=== PATIENT | female | born 1950 | race Two or more races ===

== ENCOUNTER 2016-08-02 11:36 | Emergency (ER) | payer BC ==
[~2016-08-02] VITALS: Ht 162.6 cm; Wt 54.4 kg
[2016-08-02] MEDS ORDERED: [UNRECOGNIZED DRUG - REMARK] (11:46)
[2016-08-02 11:49] VITALS: BP 135/70
--- NOTE | 2016-08-02 12:28 | Emergency Room Report ---
History of Present Illness General Chief Complaint: Upper Respiratory Illness Source: Patient Present Illness HPI 66 YO Female presents to the ED c/o itchy rash to the face and neck intermittently x 2 weeks, pt. denies swelling of the lips or tongue, denies wheezing or difficulty breathing. pt. does report a scratchy sensation in the throat. pt. states Lali did help minimally with her symptoms initially. denies new soaps, detergents, or facial products. denies previous allergies. pt. denies N/V/F/C,abdominal pain, dysuria, hematuria, or frequency. Pt. reports 10/10 in severity burning sensation to the face. pt. reports intermittent dull CHOUDHURY generalized x 5 days. denies acute onset of pain. Denies CP , Palpitations, LOC, AMS, dizziness, Changes in Vision, Sensation, paresthesias , or a sudden severe headache. Allergies: Coded Allergies: PENICILLINS (Unverified Allergy, Unknown, 08/02/16) Uncoded Allergies: PENICILLIN (Allergy, Unknown, 08/02/16) Patient History Past Medical History: see triage record Past Surgical History: none Pertinent Family History: none Now: No Reviewed Nursing Documentation: PMH: Agreed, PSxH: Agreed Nursing Documentation-PMH Hx Gastrointestinal Problems: Yes - Irritable bowel Review of Systems All Other Systems: negative except mentioned in HPI Physical Exam Vital Signs Date Time Temp Pulse Resp B/P Pulse Ox O2 Delivery O2 Flow Rate FiO2 08/02/16 11:39 98.4 86 16 135/70 100 Room Air Sp02 EP Interpretation: reviewed, normal General Appearance: no apparent distress, alert, GCS 15, non-toxic Head: normocephalic, atraumatic Eyes: bilateral eye PERRL, bilateral eye normal inspection ENT: hearing grossly normal, normal pharynx, no angioedema, normal voice Neck: full range of motion, supple/symm/no masses Respiratory: chest non-tender, lungs clear, normal breath sounds, speaking full sentences Cardiovascular #1: regular rate, rhythm, no edema Gastrointestinal: normal bowel sounds, non tender, soft, no guarding, no rebound Rectal: deferred Genitourinary: normal inspection, no CVA tenderness Musculoskeletal: back normal, gait/station normal, normal range of motion, non- tender Neurologic: alert, oriented x3, responsive, motor strength/tone normal, sensory intact, speech normal Psychiatric: judgement/insight normal, memory normal, mood/affect normal Skin: normal color, warm/dry, well hydrated, rash - erythemea and dryness to the face and neck with obvious excoriations, mild facial edema noted, no swelling of the lips or tongue. Lymphatic: no adenopathy Medical Decision Making PA Attestation Dr. Watson is my supervising Physician whom patient management has been discussed with. Diagnostic Impression: Primary Impression: Allergic dermatitis ER Course 66 YO Female presents to the ED c/o itchy rash to the face and neck intermittently x 2 weeks, pt. denies swelling of the lips or tongue, denies wheezing or difficulty breathing. pt. does report a scratchy sensation in the throat. pt. states Lali did help minimally with her symptoms initially. denies new soaps, detergents, or facial products. denies previous allergies. pt. denies N/V/F/C,abdominal pain, dysuria, hematuria, or frequency. Pt. reports 10/10 in severity burning sensation to the face. pt. reports intermittent dull CHOUDHURY generalized x 5 days. denies acute onset of pain. Denies CP , Palpitations, LOC, AMS, dizziness, Changes in Vision, Sensation, paresthesias , or a sudden severe headache. Ddx considered but are not limited to cellulitis, scabies, shingles, varicella, dermatitis, urticaria, eczema, tinea Vital signs: are WNL, pt. is afebrile H&PE are most consistent with Allergic dermatitis, no evidence of acute or impending airway compromise. ORDERS: -CBC: unremarkable -CMP: unremarkable -UA: WNL ED INTERVENTIONS: -Benadryl -Solu-medrol IM - Re-evaluation of pt. her facial rash has significantly improved. DISCHARGE: At this time pt. is stable for d/c to home. Will provide printed patient care instructions, and any necessary prescriptions. Care plan and follow up instructions have been discussed with the patient prior to discharge. Labs Test 08/02/16 12:10 White Blood Count 7.5 K/UL (4.8-10.8) Red Blood Count 4.50 M/UL (4.20-5.40) Hemoglobin 13.4 G/DL (12.0-16.0) Hematocrit 40.2 % (37.0-47.0) Mean Corpuscular Volume 89 FL (80-99) Mean Corpuscular Hemoglobin 29.9 PG (27.0-31.0) Mean Corpuscular Hemoglobin Concent 33.5 G/DL (32.0-36.0) Red Cell Distribution Width 11.5 % (11.6-14.8) Platelet Count 184 K/UL (150-450) Mean Platelet Volume 8.5 FL (6.5-10.1) Neutrophils (%) (Auto) 70.7 % (45.0-75.0) Lymphocytes (%) (Auto) 19.1 % (20.0-45.0) Monocytes (%) (Auto) 9.3 % (1.0-10.0) Eosinophils (%) (Auto) 0.2 % (0.0-3.0) Basophils (%) (Auto) 0.7 % (0.0-2.0) Urine Color Pale yellow Urine Appearance Clear Urine pH 6.5 (4.5-8.0) Urine Specific [place] 1.010 (1.005-1.035) Urine Protein Negative (NEGATIVE) Urine Glucose (UA) Negative (NEGATIVE) Urine Ketones Negative (NEGATIVE) Urine Occult Blood Negative (NEGATIVE) Urine Nitrite Negative (NEGATIVE) Urine Bilirubin Negative (NEGATIVE) Urine Urobilinogen Normal MG/DL (0.0-1.0) Urine Leukocyte Esterase Negative (NEGATIVE) Sodium Level 138 mEQ/L (135-145) Potassium Level 4.1 mEQ/L (3.4-4.9) Chloride Level 98 mEQ/L (98-107) Carbon Dioxide Level 26 mEQ/L (20-30) Anion Gap 14 (5-15) Blood Urea Nitrogen 15 mg/dL (7-23) Creatinine 0.7 mg/dL (0.5-0.9) Estimat Glomerular Filtration Rate > 60 mL/min (>60) Glucose Level 87 mg/dL (74-106) Calcium Level 9.1 mg/dL (8.6-10.2) Total Bilirubin 0.3 mg/dL (0.0-1.2) Aspartate Amino Transf (AST/SGOT) 21 U/L (5-40) Alanine Aminotransferase (ALT/SGPT) 14 U/L (3-33) Alkaline Phosphatase 56 U/L (35-104) Total Protein 7.8 g/dL (6.6-8.7) Albumin 4.5 g/dL (3.5-5.2) Globulin 3.3 g/dL Albumin/Globulin Ratio 1.3 (1.0-2.7) Last Vital Signs Date Time Temp Pulse Resp B/P Pulse Ox O2 Delivery O2 Flow Rate FiO2 08/02/16 11:49 98.4 16 135/70 100 Room Air 08/02/16 11:49 86 Disposition: HOME, SELF-CARE Condition: Stable Scripts Diphenhydramine Hcl (BENADRYL ALLERGY) 25 Mg Tablet 25 MG PO QID, #30 TAB Prov: Rachel Padron 08/02/16 Hydrocortisone 2% Cream (ANTI-ITCH 2% CREAM) Y Cr 1 APPL TP BID, #28.3 GM Prov: Rachel Padron 08/02/16 Patient Instructions: Allergy Test, Contact Dermatitis, [id number] Additional Instructions: Take medications as directed. Follow up with PCP in 3-5 days Return sooner to ED if new symptoms occur, or current symptoms become worse. Do not drink alcohol, drive, or operate heavy machinery while taking benadryl as this may cause drowsiness. - Please note that this Emergency Department Report was dictated using [employer]firmware engineer technology software, occasionally this can lead to erroneous entry secondary to interpretation by the dictation equipment. Rachel Padron Aug 02, 2016 12:28
[2016-08-02] MEDS ORDERED: Solu-MEDROL 125mg Inj IM ONE (12:30)
[2016-08-02 12:52] LABS: APPEARANCE,URINE CLEAR; KETONES,URINE NEGATIVE (NEGATIVE); LEUKOCYTE ESTERASE ,URINE NEGATIVE (NEGATIVE); NITRITE,URINE NEGATIVE (NEGATIVE); PH,URINE 6.5 (4.5-8.0); PROTEIN,URINE NEGATIVE (NEGATIVE); UROBILINOGEN,URINE NORMAL MG/DL (0.0-1.0)
[2016-08-02 12:57] LABS: BASOPHILS % (AUTO) 0.7 % (0.0-2.0); EOSINOPHILS % (AUTO) 0.2 % (0.0-3.0); LYMPHOCYTES % (AUTO) 19.1 % (20.0-45.0); MEAN CORPUSCULAR HEMOGLOBIN 29.9 PG (27.0-31.0); MEAN CORPUSCULAR HGB CONC 33.5 G/DL (32.0-36.0); MEAN CORPUSCULAR VOLUME 89 FL (80-99); MEAN PLATELET VOLUME 8.5 FL (6.5-10.1); MONOCYTES % (AUTO) 9.3 % (1.0-10.0); NEUTROPHILS % (AUTO) 70.7 % (45.0-75.0); PLATELET COUNT 184 K/UL (150-450); RED CELL DISTRIBUTION WIDTH 11.5 % (11.6-14.8); WHITE BLOOD COUNT 7.5 K/UL (4.8-10.8)
[2016-08-02 13:01] LABS: ALANINE AMINOTRANSFERASE 14 U/L (3-33); ALBUMIN/GLOBULIN RATIO 1.3 (1.0-2.7); ANION GAP 14 (5-15); ASPARTATE AMINO TRANSFERASE 21 U/L (5-40); CALCIUM 9.1 mg/dL (8.6-10.2); CARBON DIOXIDE 26 mEQ/L (20-30); CHLORIDE 98 mEQ/L (98-107); CREATININE 0.7 mg/dL (0.5-0.9); GLOMERULAR FILTRATION RATE > 60 mL/min (>60); HEMOLYSIS 5; POTASSIUM 4.1 mEQ/L (3.4-4.9); SODIUM 138 mEQ/L (135-145); TOTAL PROTEIN 7.8 g/dL (6.6-8.7)
[2016-08-02] MEDS ORDERED: ANTI-ITCH28 G1 TP (13:14)
[2016-08-02] MEDS ORDERED: BENADRYL ALLERG25 M1 PO (13:14)
[2016-08-02 13:28] VITALS: BP 128/69
== END 2016-08-02 13:34 | disposition home or self-care (01) ==
LOC: EMR 13:09
DX: L23.9 Allergic contact dermatitis, unspecified cause (principal); R51 Headache; Z88.0 Allergy status to penicillin; Z87.19 Personal history of other diseases of the digestive system
CPT/HCPCS: 36415; 80053; 81003; 85025; 96372; 99284; J2930